=== PATIENT | female | born 1975 | race African-American/Black ===

== ENCOUNTER 2019-04-17 05:45 | Emergency (ER) | payer SELFPAY ==
[~2019-04-17] VITALS: Ht 162.6 cm; Wt 113.4 kg
[2019-04-17 05:59] VITALS: BP 120/80
--- NOTE | 2019-04-17 06:00 | NUR ---
ED Nurse Note: Pt ambulated into ED CO lower back pain and lower abdominal pain 5. Pt states that her menstrual cycle may begin soon but is unsure d/t not having a regular menstrual cycle. Pt denies n/v/d or fever. Awaiting ERMD at bedside Addendum: 04/17/19 at 0611 by [facility] ED Nurse Note: Pt ambulated into ED CO lower back pain and lower abdominal pain 5. Pt states that her menstrual cycle may begin soon but is unsure d/t not having a regular menstrual cycle. Pt states she was also moving most of her house furniture yesterday while cleaning and believes she may have moved improperly. Pt denies n/v/d or fever, previous hx. Awaiting ERMD at bedside
--- NOTE | 2019-04-17 06:25 | NUR ---
ED Nurse Note: ERMD at bedside
[2019-04-17] MEDS ORDERED: CYCLOBENZAPRINE10 MG ORAL (06:35)
[2019-04-17] MEDS ORDERED: NAPROXEN500 M2 ORAL (06:35)
--- NOTE | 2019-04-17 06:40 | NUR ---
ER DISCHARGE NOTE: Patient is cleared to be discharged home per ERMD, pt is aox4, on room air, with stable vital signs. pt was given dc and prescription instructions, pt was able to verbalize understanding, pt id band removed. pt is able to ambulate with steady gait. pt took all belongings.
[2019-04-17 06:41] VITALS: BP 120/80
--- NOTE | 2019-04-17 06:42 | Emergency Room Report ---
History of Present Illness General Chief Complaint: Lower Back Pain or Injury Source: Patient Present Illness HPI Disclaimer: Please note that this report is being documented using [employer] technology. This can lead to erroneous entry secondary to incorrect interpretation by the dictating instrument. HPI: 43-year-old female no reported past medical history presented ambulatory to the ER for low back pain. She states she was cleaning her house yesterday moving a lot of heavy objects when she started having the right-sided low back pain. She describes it as 8 out of 10 aching in nature and nonradiating. She denies any other issues at this time. No urinary complaints. Normal menstrual cycle. No fevers nausea or vomiting. Pain is worse with movement aching in nature. PMH: Patient denies past medical history PSH: Reviewed Social Hx: Denies smoking drinking or illicit drug use Allergies: Coded Allergies: SULFA (SULFONAMIDE ANTIBIOTICS) (Verified Allergy, Unknown, 04/17/19) Patient History Past Medical History: see triage record Last Menstrual Period: 03/2019 Nursing Documentation-PMH Past Medical History: No Stated History Review of Systems All Other Systems: negative except mentioned in HPI Physical Exam Vital Signs Date Time Temp Pulse Resp B/P (MAP) Pulse Ox O2 Delivery O2 Flow Rate FiO2 04/17/19 05:49 98.1 87 16 114/69 (84) 100 Room Air Sp02 EP Interpretation: reviewed, normal General Appearance: well appearing, no apparent distress Head: normocephalic, atraumatic Eyes: bilateral eye PERRL, bilateral eye EOMI ENT: hearing grossly normal, moist mucus membranes Neck: full range of motion, supple Respiratory: lungs clear, normal breath sounds, no rhonchi, no respiratory distress, no retraction, no wheezing Cardiovascular #1: normal peripheral pulses, regular rate, rhythm, no murmur Gastrointestinal: non tender, soft, non-distended, no guarding Musculoskeletal: normal inspection, other - No midline tenderness. Mild right- sided low back tenderness Neurologic: alert, oriented x3, normal gait, no focal defects Skin: normal color, warm/dry Medical Decision Making Diagnostic Impression: Primary Impression: Back strain ER Course Patient presented with mild right-sided low back pain after moving heavy objects. Suspect low back strain, lumbar strain, thoracic strain less likely cauda equina or epidural abscess. Patient neurologically intact alert ambulatory. No acute distress. Will be discharged with anti-inflammatories, muscle relaxants and instructed to continue range of motion and stretching as tolerated. Low up PMD return precautions given Last Vital Signs Date Time Temp Pulse Resp B/P (MAP) Pulse Ox O2 Delivery O2 Flow Rate FiO2 04/17/19 05:59 98.1 83 16 120/80 100 Room Air Disposition: HOME, SELF-CARE Condition: Stable Scripts Cyclobenzaprine Hcl* (FLEXERIL*) 10 Mg Tablet 10 MG ORAL QHS PRN for For Pain, #10 TAB Prov: Dario Stack M.D. 04/17/19 Naproxen* (NAPROXEN*) 500 Mg Tablet 500 MG ORAL TWICE A DAY PRN for For Pain, #30 TAB Prov: Dario Stack M.D. 04/17/19 Referrals: [facility] Patient Instructions: Thoracic Strain, [id number] Additional Instructions: Patient is instructed to follow-up with her primary care doctor, primary care clinic or [facility] in 1 to 2 days. Patient instructed to return for any worsening symptoms or concerns. Please note that the documentation in this note was used with [employer] technology. Pleae be advised that this may lead to erroneous text due to misinterpretation by the dictation software Dario Stack M.D. Apr 17, 2019 06:42
== END 2019-04-17 06:40 | disposition home or self-care (01) ==
LOC: EMR 06:35
DX: S39.012A Strain of muscle, fascia and tendon of lower back, initial encounter (principal); X50.0XXA Overexertion from strenuous movement or load, initial encounter; Y92.9 Unspecified place or not applicable; Z88.2 Allergy status to sulfonamides
CPT/HCPCS: 99282